=== PATIENT | female | born 2000 | race African-American/Black ===

== ENCOUNTER 2020-11-25 14:21 | Emergency (ER) | payer OTHER ==
[~2020-11-25] VITALS: Ht 170.2 cm; Wt 65.5 kg
[2020-11-25 14:28] VITALS: TEMP 98.5
[2020-11-25 16:50] VITALS: BP 118/62; PULSE 80
== END 2020-11-25 16:54 | disposition home or self-care (01) ==
LOC: COL.ER 14:21
DX: S06.0X0A Concussion without loss of consciousness, initial encounter (principal); S16.1XXA Strain of muscle, fascia and tendon at neck level, initial encounter; V19.9XXA Pedal cyclist (driver) (passenger) injured in unspecified traffic accident, initial encounter

== ENCOUNTER 2021-07-11 22:41 | Emergency (ER) | payer OTHER ==
[~2021-07-11] VITALS: Ht 170.2 cm; Wt 63.6 kg
[2021-07-11 22:47] VITALS: TEMP 98.4
[2021-07-11 23:20] VITALS: BP 118/67; PULSE 90
== END 2021-07-11 23:20 | disposition home or self-care (01) ==
LOC: COL.ER 22:41
DX: T78.1XXA Other adverse food reactions, not elsewhere classified, initial encounter (principal); Z91.010 Allergy to peanuts; Z91.018 Allergy to other foods